=== PATIENT | female | born 1950 | race African-American/Black ===

== ENCOUNTER 2022-08-08 18:32 | Emergency (ER) | payer OTHER ==
[~2022-08-08] VITALS: Ht 175.3 cm; Wt 99.8 kg
--- NOTE | 2022-08-08 18:44 | NUR ---
AMB. TO BED 2 WITH NO DISTRESS. AWAKE AND ALERT. EKG ORDERED IMMEDIATELY. MADE AWARE.
[2022-08-08 18:45] VITALS: BP_DIAS 208; PULSE 63; RESP 16; TEMP 98.1; O2SAT 97
--- NOTE | 2022-08-08 18:54 | NUR ---
MD AT BEDSIDE FOR EXAM
[2022-08-08] MEDS ORDERED: LABETALOL 20 MG/4 ML VIAL IVP ONE (19:05)
--- NOTE | 2022-08-08 19:11 | NUR ---
PATIENT PRESENTS TO ED WITH SIGNS OF HYPERTENSION. PT STATES SHE WAS AT URGENT CARE AND BLOOD PRESSURE WAS RECORDED AT 210/103. PT HAS A HISTORY OF HTN. PT STATES SHES ON MEDICATION, BUT BLOOD PRESSURE IS NOT GOING DOWN. PT STATES SHES HAD AN ON GOING UPPER RESPITORY INFECTION. DENIES N/V/D; SKIN IS PINK/WARM/DRY; AAOX4 WITH EVEN AND STEADY GAIT; LUNGS CLEAR BL; HR EVEN AND REGULAR; PT DENIES ANY FEVER, CP, SOB, OR COUGH AT THIS TIME; PATIENT STATES PAIN OF 8/10 AT THIS TIME; VSS; PATIENT POSITIONED FOR COMFORT; HOB ELEVATED; BEDRAILS UP X2; BED DOWN. ER MD MADE AWARE OF PT STATUS. IV ESTABLISHED. PT ON MONITOR. EKG DONE RESULTS GIVEN TO MD. PT RESTING HOB NO SIGNS OF DISCOMFORT AT THIS TIME. Pt Hx Pre cancerous Polyps Hypertensive CHF HTN Hypothyroidism IBS Colitis Multiple Myeloma Influenza Obesity Subacute bacterial Endocarditis Osteoporosis Urniary Incontionence Pituitary Adenoma SURESH on CPAP Keloid prone Depression IGA Monoclonal Gammoopathy of uncertain siginificance Osteoporosis RSV NANCY ( Generalized anxitey )
[2022-08-08 19:25] VITALS: O2SAT 95
[2022-08-08 19:35] LABS: PROTHROMBIN TIME 9.6 secs (10.8-13.4)
[2022-08-08 19:41] LABS: ALBUMIN 3.4 g/dL (3.4-5.0); ANION GAP 12.7 (8-16); ASPARTATE AMINOTRANSFERASE 24 U/L (15-37); CARBON DIOXIDE 27.6 mmol/L (21-32); CHLORIDE 102 mmol/L (98-107); CREATININE 0.9 mg/dL (0.6-1.3); GLUCOSE 92 mg/dL (74-106); POTASSIUM 3.3 mmol/L (3.5-5.1); SODIUM SERUM 139 mmol/L (136-145); TOTAL BILIRUBIN 0.4 mg/dL (0.0-1.0); UREA NITROGEN, BLOOD 10 mg/dL (7-18)
[2022-08-08 20:02] LABS: FREE T4 (FREE THYROXINE) 1.93 ng/dL (0.76-1.46); THYROID STIMULATING HORMONE 0.89 uIU/mL (0.34-3.74)
--- NOTE | 2022-08-08 20:03 | NUR ---
MEDICATE PT ORDERED. PT COUGHING OCCASIONALLY. PT STATED, SHE IS CURRENTLY SICK WITH A RESPITORY VIRUS.
[2022-08-08 20:10] LABS: BASOPHILS % (AUTO) 0.6 % (0.0-2.0); EOSINOPHILS % (AUTO) 0.4 % (0.0-4.0); HEMATOCRIT 28.2 % (36-48); HEMOGLOBIN 9.2 g/dL (12.0-16.0); LYMPHOCYTES # (AUTO) 2.4 K/uL (2.5-16.5); LYMPHOCYTES % (AUTO) 51.8 % (20.5-51.1); MEAN CORPUSCULAR HEMOGLOBIN 25 pg (27-31); MEAN CORPUSCULAR HGB CONC 33 g/dL (33-37); MEAN CORPUSCULAR VOLUME 75.9 fL (80-94); MONOCYTES # (AUTO) 0.5 K/uL (0.8-1.0); MONOCYTES % (AUTO) 10.6 % (1.7-9.3); NEUTROPHILS # (AUTO) 1.7 K/uL (1.8-7.7); NEUTROPHILS % (AUTO) 36.6 % (42.2-75.2); PLATELET COUNT (AUTO) 239 K/uL (140-450); RED BLOOD CELL COUNT(AUTO) 3.72 MIL/uL (4.20-5.40); RED CELL DISTRIBUTION WIDTH 17.5 % (11.6-13.7); WHITE BLOOD COUNT (AUTO) 4.7 K/uL (4.8-10.8)
--- NOTE | 2022-08-08 20:45 | NUR ---
PT RETURNED BACK TO BED #2 [address]-SCAN. AWAITING RESULTS OF CT. AT WITH PT.
[2022-08-08 22:53] VITALS: BP 170/76; PULSE 62; RESP 18; TEMP 98; O2SAT 98
--- NOTE | 2022-08-08 22:53 | NUR ---
Patient discharged with v/s stable. Written and verbal after care instructions given and explained. Patient verbalized understanding. Ambulatory with steady gait. All questions addressed prior to discharge. Advised to follow up with PMD AND [employer]. No RX given. Pt to f/u with her doctor's to have her medications adjusted to control her BP. Pt ambulated out in stable condition without assist. Pt instructed to return if condition worsens or to call 911 in the case of an emergency.
== END 2022-08-08 22:53 | disposition home or self-care (01) ==
LOC: MED 18:32
DX: D64.9 Anemia, unspecified (principal); I16.0 Hypertensive urgency; R07.89 Other chest pain; R51.9 Headache, unspecified; I10 Essential (primary) hypertension; F41.9 Anxiety disorder, unspecified; E03.9 Hypothyroidism, unspecified; Z98.890 Other specified postprocedural states
CPT/HCPCS: 36415; 70450; 70496; 70498; 71045; 71260; 80053; 83880; 84439; 84443; 84484; 85025; 85610; 85730; 93005; 96374; 99285; J3490; Q9967

== ENCOUNTER 2023-01-01 13:40 | Emergency (ER) | payer OTHER ==
[~2023-01-01] VITALS: Ht 167.6 cm; Wt 98.4 kg
[2023-01-01 13:42] VITALS: BP 128/73; PULSE 78; RESP 18; TEMP 97.4; O2SAT 98
[2023-01-01 14:35] LABS: BASOPHILS % (AUTO) 0.7 % (0.0-2.0); EOSINOPHILS % (AUTO) 0.6 % (0.0-4.0); HEMATOCRIT 35.2 % (36-48); HEMOGLOBIN 11.3 g/dL (12.0-16.0); LYMPHOCYTES # (AUTO) 0.9 K/uL (2.5-16.5); MEAN CORPUSCULAR HEMOGLOBIN 27 pg (27-31); MEAN CORPUSCULAR HGB CONC 32 g/dL (33-37); MEAN CORPUSCULAR VOLUME 85.3 fL (80-94); MONOCYTES # (AUTO) 0.8 K/uL (0.8-1.0); MONOCYTES % (AUTO) 12.9 % (1.7-9.3); NEUTROPHILS # (AUTO) 4.1 K/uL (1.8-7.7); NEUTROPHILS % (AUTO) 69.8 % (42.2-75.2); PLATELET COUNT (AUTO) 242 K/uL (140-450); RED BLOOD CELL COUNT(AUTO) 4.12 MIL/uL (4.20-5.40); WHITE BLOOD COUNT (AUTO) 5.9 K/uL (4.8-10.8)
[2023-01-01 14:47] LABS: ALANINE AMINOTRANSFERASE 23 U/L (12-78); ALBUMIN 3.3 g/dL (3.4-5.0); ALKALINE PHOSPHATASE 104 U/L (50-136); ANION GAP 13.6 (8-16); ASPARTATE AMINOTRANSFERASE 21 U/L (15-37); CALCIUM 8.1 mg/dL (8.5-10.1); CARBON DIOXIDE 25.1 mmol/L (21-32); CHLORIDE 99 mmol/L (98-107); CREATININE 0.9 mg/dL (0.6-1.3); GLUCOSE 106 mg/dL (74-106); LIPASE 85 U/L (16-77); POTASSIUM 3.7 mmol/L (3.5-5.1); SODIUM SERUM 134 mmol/L (136-145); TOTAL BILIRUBIN 0.6 mg/dL (0.0-1.0); UREA NITROGEN, BLOOD 5 mg/dL (7-18)
[2023-01-01] MEDS ORDERED: ALBUTEROL 0.083% 2.5 MG/3 ML NEBU INH ONE (15:35)
[2023-01-01] MEDS ORDERED: IPRATROPIUM 0.02% 0.5 MG/2.5 ML NEBU INH ONE (15:35)
[2023-01-01 15:53] VITALS: PULSE 73; RESP 18; O2SAT 97
[2023-01-01 16:12] LABS: FLU A ANTIGEN negative (NEGATIVE); FLU B ANTIGEN NEGATIVE (NEGATIVE)
[2023-01-01 16:59] VITALS: BP 132/72; PULSE 80; RESP 18; TEMP 97.4; O2SAT 100
== END 2023-01-01 18:01 | disposition home or self-care (01) ==
LOC: MED 13:40
DX: J06.9 Acute upper respiratory infection, unspecified (principal); Z20.822 Contact with and (suspected) exposure to COVID-19; J45.909 Unspecified asthma, uncomplicated; I11.9 Hypertensive heart disease without heart failure; Z79.899 Other long term (current) drug therapy
CPT/HCPCS: 36415; 71045; 80053; 83690; 84484; 85025; 85379; 87426; 87804; 93005; 94640; 99285; J7613; J7644

== ENCOUNTER 2023-08-30 20:06 | Inpatient (IN) | payer OTHER ==
[~2023-08-30] VITALS: Ht 167.6 cm; Wt 99.8 kg
[2023-08-30 20:27] VITALS: BP 176/75; PULSE 66; RESP 16; TEMP 96; O2SAT 99
[2023-08-30] MEDS: LABETALOL 20 MG/4 ML VIAL IVP ONE (21:05)
[2023-08-30 21:22] LABS: BASOPHILS # (AUTO) 0.1 K/uL (0.00-0.22); BASOPHILS % (AUTO) 1.2 % (0.0-2.0); EOSINOPHILS # (AUTO) 0.1 K/uL (0-0.4); EOSINOPHILS % (AUTO) 0.9 % (0.0-4.0); HEMATOCRIT 32.4 % (36-48); HEMOGLOBIN 10.4 g/dL (12.0-16.0); LYMPHOCYTES # (AUTO) 2.4 K/uL (2.5-16.5); LYMPHOCYTES % (AUTO) 32.9 % (20.5-51.1); MEAN CORPUSCULAR HEMOGLOBIN 28 pg (27-31); MEAN CORPUSCULAR HGB CONC 32 g/dL (33-37); MEAN CORPUSCULAR VOLUME 87.7 fL (80-94); MONOCYTES # (AUTO) 0.8 K/uL (0.8-1.0); MONOCYTES % (AUTO) 11.2 % (1.7-9.3); NEUTROPHILS % (AUTO) 53.8 % (42.2-75.2); PLATELET COUNT (AUTO) 260 K/uL (140-450); RED BLOOD CELL COUNT(AUTO) 3.69 MIL/uL (4.20-5.40); RED CELL DISTRIBUTION WIDTH 14.1 % (11.6-13.7); WHITE BLOOD COUNT (AUTO) 7.4 K/uL (4.8-10.8)
[2023-08-30 21:40] LABS: CALCIUM 8.8 mg/dL (8.5-10.1); CARBON DIOXIDE 29.5 mmol/L (21-32); CHLORIDE 103 mmol/L (98-107); CREATININE 0.9 mg/dL (0.6-1.3); GLUCOSE 76 mg/dL (74-106); POTASSIUM 3.5 mmol/L (3.5-5.1); SODIUM SERUM 138 mmol/L (136-145); UREA NITROGEN, BLOOD 15 mg/dL (7-18)
[2023-08-30] MEDS: MORPHINE SULFATE 4 MG/ML SYR IM ONE (21:40)
[2023-08-30] MEDS: NITROGLYCERIN 2% 1 GM PKT TP ONE (21:41)
[2023-08-30 21:45] LABS: ALANINE AMINOTRANSFERASE 22 U/L (12-78); ALBUMIN 3.1 g/dL (3.4-5.0); ALKALINE PHOSPHATASE 104 U/L (50-136); ASPARTATE AMINOTRANSFERASE 22 U/L (15-37); BILIRUBIN,DIRECT 0.1 mg/dL (0.0-0.3); TOTAL BILIRUBIN 0.2 mg/dL (0.0-1.0); TOTAL PROTEIN, SERUM 7.5 g/dL (6.4-8.2)
[2023-08-30] MEDS: MORPHINE SULFATE 4 MG/ML SYR IVP ONE (23:47)
[2023-08-31] MEDS ORDERED: ACETAMINOPHEN 325 MG TAB PO PRN (00:15)
[2023-08-31] MEDS ORDERED: ONDANSETRON 4 MG/2 ML VIAL IVP PRN (00:15)
[2023-08-31] MEDS ORDERED: MORPHINE SULFATE 2 MG/ML SYR IVP PRN (00:15)
[2023-08-31] MEDS ORDERED: ALUMINUM HYD/MAG/SIMETHICONE 30 ML UDC PO PRN (00:15)
[2023-08-31] MEDS: ASPIRIN 325 MG TAB PO ONE (01:01)
[2023-08-31] MEDS ORDERED: NEBI5TAB8 PO (02:41)
[2023-08-31] MEDS ORDERED: FLUT1DSK2 IH ×2 (02:41)
[2023-08-31] MEDS ORDERED: ACET-503 PO (02:41)
[2023-08-31] MEDS ORDERED: PRON INH (02:41)
[2023-08-31] MEDS ORDERED: BUS5 PO (02:41)
[2023-08-31] MEDS ORDERED: CLON0.1T16 PO (02:41)
[2023-08-31] MEDS ORDERED: AMLO10TA PO (02:41)
[2023-08-31] MEDS ORDERED: ATOR10TA PO (02:41)
[2023-08-31] MEDS ORDERED: ALPR1TAB2 PO (02:41)
[2023-08-31] MEDS ORDERED: FURO-570 PO (02:51)
[2023-08-31] MEDS ORDERED: QUET25TA PO (02:51)
[2023-08-31] MEDS ORDERED: IRBE300T36 PO (02:51)
[2023-08-31] MEDS ORDERED: HYDR-4004 PO (02:51)
[2023-08-31] MEDS ORDERED: OXCA150T2 PO (02:51)
[2023-08-31] MEDS ORDERED: LORA10TA19 PO (02:51)
[2023-08-31] MEDS ORDERED: LEVO0.2T5 PO (02:51)
[2023-08-31] MEDS ORDERED: SERT100T PO (02:51)
[2023-08-31] MEDS ORDERED: [UNRECOGNIZED DRUG - CODE] IJ (02:51)
[2023-08-31] MEDS ORDERED: LURA20TA PO (02:51)
[2023-08-31] MEDS ORDERED: ONDA-188 SL (02:51)
[2023-08-31] MEDS ORDERED: MIRA25TE PO (02:51)
[2023-08-31] MEDS: HYDROcodone/APAP 5/325 MG 1 TAB TAB PO ONE (04:14)
[2023-08-31] MEDS: POTASSIUM CHLORIDE 20% 40 MEQ/15 ML UDC PO ONE (04:15)
[2023-08-31 07:28] VITALS: O2SAT 97
[2023-08-31 11:30] VITALS: BP 154/60; PULSE 52; PULSE 65; RESP 20; TEMP 97.2; O2SAT 95
[2023-08-31] MEDS ORDERED: ALBUTEROL 0.083% 2.5 MG/3 ML NEBU INH PRN (11:50)
[2023-08-31] MEDS ORDERED: hydrALAZINE 20 MG/ML VIAL IVP PRN (11:50)
[2023-08-31] MEDS ORDERED: ONDANSETRON 4 MG ODT SL PRN (11:50)
[2023-08-31] MEDS: FUROSEMIDE 40 MG/4 ML VIAL IVP SCH (12:08)
[2023-08-31] MEDS: ALPRAZolam 0.5 MG TAB PO SCH (13:00)
[2023-08-31 16:00] VITALS: BP 147/75; PULSE 58; PULSE 62; RESP 20; TEMP 96.6; O2SAT 95
[2023-08-31 20:00] VITALS: BP 132/60; PULSE 67; PULSE 69; RESP 18; TEMP 97.8; O2SAT 96
[2023-08-31 20:11] LABS: APPEARANCE,URINE CLEAR (CLEAR); BILIRUBIN,URINE NEGATIVE (NEGATIVE); BLOOD, URINE NEGATIVE (NEGATIVE); COLOR,URINE YELLOW (YELLOW); LEUKOCYTE ESTERASE ,URINE NEGATIVE (NEGATIVE); NITRITE, URINE NEGATIVE (NEGATIVE); PH,URINE 6.5 (5.0-9.0); PROTEIN,URINE NEGATIVE (NEGATIVE); UGLUCOSE NEGATIVE (NEGATIVE); UROBILINOGEN,URINE 0.2 EU/dL (0.2 - 1)
[2023-08-31 21:08] VITALS: O2SAT 99
[2023-08-31] MEDS: OXcarbazepine 150 MG TAB PO SCH (21:53)
[2023-08-31] MEDS: LOSARTAN 25 MG TAB PO SCH (21:53)
[2023-08-31] MEDS: QUEtiapine FUMARATE 25 MG TAB PO SCH (21:53)
[2023-09-01] VITALS (8 sets, daily range): BP systolic 135–163; BP diastolic 70–77; PULSE 52–78; RESP 18–20; TEMP 97.6–98.4; O2SAT 93–100
[2023-09-01 01:05] LABS: BASOPHILS % (AUTO) 0.2 % (0.0-2.0); EOSINOPHILS # (AUTO) 0.1 K/uL (0-0.4); EOSINOPHILS % (AUTO) 1.6 % (0.0-4.0); HEMATOCRIT 29.4 % (36-48); HEMOGLOBIN 9.7 g/dL (12.0-16.0); LYMPHOCYTES # (AUTO) 1.7 K/uL (2.5-16.5); LYMPHOCYTES % (AUTO) 35.4 % (20.5-51.1); MEAN CORPUSCULAR HEMOGLOBIN 29 pg (27-31); MEAN CORPUSCULAR HGB CONC 33 g/dL (33-37); MEAN CORPUSCULAR VOLUME 87.6 fL (80-94); MONOCYTES # (AUTO) 0.4 K/uL (0.8-1.0); MONOCYTES % (AUTO) 8.7 % (1.7-9.3); NEUTROPHILS # (AUTO) 2.6 K/uL (1.8-7.7); NEUTROPHILS % (AUTO) 54.1 % (42.2-75.2); PLATELET COUNT (AUTO) 251 K/uL (140-450); RED BLOOD CELL COUNT(AUTO) 3.36 MIL/uL (4.20-5.40); RED CELL DISTRIBUTION WIDTH 13.8 % (11.6-13.7); WHITE BLOOD COUNT (AUTO) 4.8 K/uL (4.8-10.8)
[2023-09-01 01:18] LABS: ANION GAP 11.4 (8-16); CALCIUM 8.2 mg/dL (8.5-10.1); CARBON DIOXIDE 28.3 mmol/L (21-32); CHLORIDE 102 mmol/L (98-107); CREATININE 0.8 mg/dL (0.6-1.3); GLUCOSE 91 mg/dL (74-106); POTASSIUM 3.7 mmol/L (3.5-5.1); SODIUM SERUM 138 mmol/L (136-145); UREA NITROGEN, BLOOD 14 mg/dL (7-18)
[2023-09-01] MEDS: LEVOTHYROXINE 0.1 MG TAB PO SCH (06:32)
[2023-09-01 06:39] LABS: THYROID STIMULATING HORMONE 2.65 uIU/mL (0.34-3.74)
[2023-09-01] MEDS ORDERED: ATORVASTATIN 20 MG TAB PO SCH (09:00)
[2023-09-01] MEDS ORDERED: busPIRone 5 MG TAB PO SCH (09:00)
[2023-09-01] MEDS ORDERED: FUROSEMIDE 40 MG TAB PO SCH (09:00)
[2023-09-01] MEDS: LORATADINE 10 MG TAB PO SCH (09:35)
[2023-09-01] MEDS: amLODIPine 5 MG TAB PO SCH (09:35)
[2023-09-01] MEDS: SERTRALINE 50 MG TAB PO SCH (09:35)
[2023-09-01] MEDS: FUROSEMIDE 40 MG/4 ML VIAL IVP SCH (09:36)
[2023-09-01] MEDS: ATORVASTATIN 20 MG TAB PO SCH (09:36)
[2023-09-01] MEDS: ASPIRIN 81 MG TAB.CHEW PO SCH (09:36)
== END 2023-09-01 12:00 | disposition left against medical advice (07) | DRG 305 ==
LOC: MED 20:06 → MTU 08-31 00:18
PROVIDERS: ADMIT Student in an Organized Health Care Education/Training Program; ATTEND Student in an Organized Health Care Education/Training Program
DX: I16.0 Hypertensive urgency (principal); R07.89 Other chest pain; I50.9 Heart failure, unspecified; I11.0 Hypertensive heart disease with heart failure; Z53.29 Procedure and treatment not carried out because of patient's decision for other reasons; E78.5 Hyperlipidemia, unspecified; E03.9 Hypothyroidism, unspecified; Z86.73 Personal history of transient ischemic attack (TIA), and cerebral infarction without residual deficits; Z79.51 Long term (current) use of inhaled steroids; Z79.899 Other long term (current) drug therapy; Z90.710 Acquired absence of both cervix and uterus; Z85.79 Personal history of other malignant neoplasms of lymphoid, hematopoietic and related tissues
CPT/HCPCS: 36415; 71045; 80048; 80076; 81003; 83735; 83880; 84439; 84443; 84484; 85025; 85379; 87081; 93005; 96372; 96374; 97116; 97163-GP; 97530; 99291; J1644; J1940; J2270; J3490; Q0092